=== PATIENT | male | born 1955 | race Caucasian/White ===

== ENCOUNTER 2017-07-13 10:30 | Emergency (ER) | payer BC ==
[~2017-07-13] VITALS: Ht 185.4 cm; Wt 92.7 kg
[2017-07-13] MEDS ORDERED: PRILOSEC 20MG20 MG PO (10:47)
[2017-07-13 11:21] LABS: BASO # 0.1 (0.02-0.10); EOS # 0.3 (0.04-0.40); EOS % 4.2 % (0.0-4.0); HEMATOCRIT 46.9 % (42.0-52.0); HEMOGLOBIN 16.4 g/dL (13.5-18.0); LYMPH# 2.1 (1.50-4.00); MEAN CELL VOLUME 96 fl (78-100); MEAN CORPUSCULAR HEMOGLOBIN 34 pg (27-31); MEAN CORPUSCULAR HGB CONC 35 g/dL (33-37); MEAN PLATELET VOLUME 11.6 fl (7.4-10.4); MONO # 0.9 (0.20-0.80); NEU # 3.6 (1.40-6.50); PLATELET COUNT 186 K/mm3 (130-400); RED CELL DISTRIBUTION WIDTH 13.3 % (11.5-14.5)
[2017-07-13 11:30] LABS: ALBUMIN 4.3 g/dL (3.5-5.0); BUN/CREATININE RATIO 19.3 (6.0-26.0); CALCIUM 8.9 mg/dL (8.4-10.2); POTASSIUM 3.7 mmol/L (3.6-5.0); TOTAL BILIRUBIN 1.1 mg/dL (0.2-1.3); TOTAL PROTEIN 8.3 g/dL (6.3-8.2)
[2017-07-13 11:39] LABS: D-DIMER 0.3 mg/L FEU (0.15-0.50)
[2017-07-13 15:00] VITALS: BP 112/76
== END 2017-07-13 14:20 | disposition home or self-care (01) ==
LOC: ED 10:30
PROVIDERS: Family Medicine
DX: I95.1 Orthostatic hypotension (principal); R00.0 Tachycardia, unspecified; E86.9 Volume depletion, unspecified; K21.9 Gastro-esophageal reflux disease without esophagitis
CPT/HCPCS: J7030